=== PATIENT | female | born 1995 | race Caucasian/White ===

== ENCOUNTER 2020-11-04 09:12 | Emergency (ER) | payer MEDICAID ==
[~2020-11-04] VITALS: Ht 165.1 cm; Wt 54.5 kg
[2020-11-04 09:44] VITALS: BP 134/93
== END 2020-11-04 10:39 | disposition home or self-care (01) ==
LOC: ER 09:13
DX: B34.9 Viral infection, unspecified (principal); Z20.822 Contact with and (suspected) exposure to COVID-19; R50.9 Fever, unspecified; R09.89 Other specified symptoms and signs involving the circulatory and respiratory systems; R05 Cough
CPT/HCPCS: 99281

== ENCOUNTER 2021-04-24 20:54 | Emergency (ER) | payer SELFPAY ==
[~2021-04-24] VITALS: Ht 165.1 cm; Wt 67.3 kg
[2021-04-24 21:01] VITALS: BP 159/87
[2021-04-24 21:33] LABS: CLARITY,URINE SLIGHTLY CLOUDY (Clear); GLUCOSE, URINE NEGATIVE (Neg); KETONES,URINE NEGATIVE (Neg); LEUKOCYTE ESTERASE ,URINE NEGATIVE (Neg); NITRITES, URINE NEGATIVE (Neg); OCCULT BLOOD,URINE LARGE (Neg); PROTEIN,URINE NEGATIVE (Neg); UA COLLECTION TYPE CLN CATCH MIDSTREAM; URINE HCG NEGATIVE (NEG); UROBILINOGEN,URINE 0.2 E.U/dL (0.2-1.0)
[2021-04-24 21:34] LABS: COLOR,URINE YELLOW (Yellow)
[2021-04-24 21:47] LABS: BACTERIA,URINE FEW /HPF (Neg); MUCUS STRANDS MANY /LPF (Neg); RBC,URINE 50-100 /HPF (0-2); SQUAMOUS EPITHELIAL CELL,UR MANY /LPF (FEW)
== END 2021-04-24 23:31 | disposition left against medical advice (07) ==
LOC: ER 20:55
DX: R30.9 Painful micturition, unspecified (principal); R39.15 Urgency of urination; Z53.21 Procedure and treatment not carried out due to patient leaving prior to being seen by health care provider
CPT/HCPCS: 81001; 81025

== ENCOUNTER 2022-07-31 07:18 | Emergency (ER) | payer MEDICAID ==
[~2022-07-31] VITALS: Ht 165.1 cm; Wt 65.0 kg
[2022-07-31 08:06] VITALS: BP 92/62
[2022-07-31 08:43] LABS: URINE HCG NEGATIVE (NEG)
[2022-07-31 08:56] LABS: CLARITY,URINE CLOUDY (Clear); COLOR,URINE YELLOW (Yellow); GLUCOSE, URINE NEGATIVE (Neg); KETONES,URINE NEGATIVE (Neg); LEUKOCYTE ESTERASE ,URINE LARGE (Neg); NITRITES, URINE POSITIVE (Neg); OCCULT BLOOD,URINE SMALL (Neg); PROTEIN,URINE 100 mg/dl (Neg)
[2022-07-31 08:58] LABS: UA COLLECTION TYPE CLN CATCH MIDSTREAM
[2022-07-31 09:06] LABS: SQUAMOUS EPITHELIAL CELL,UR MODERATE /LPF (FEW)
[2022-07-31 09:07] LABS: WBC,URINE TNTC /HPF (0-4)
[2022-07-31 09:11] LABS: BACTERIA,URINE 3+ /HPF (Neg)
[2022-07-31] MEDS ORDERED: sulfamethoxazole/trimethoprim DS (800/160mg) tablet PO ONE (10:10)
[2022-07-31] MEDS ORDERED: SULF1TAB49 PO (10:10)
== END 2022-07-31 10:39 | disposition home or self-care (01) ==
LOC: ER 07:18
DX: N39.0 Urinary tract infection, site not specified (principal); R31.9 Hematuria, unspecified
CPT/HCPCS: 81001; 81025; 87077; 87088; 87186; 99283

== ENCOUNTER 2022-08-02 17:10 | Emergency (ER) | payer MEDICAID ==
[~2022-08-02 17:10] MED LIST: SULF1TAB49 PO
[2022-08-02] MEDS ORDERED: CYCL-1 PO (23:00)
== END 2022-08-02 19:18 | disposition left against medical advice (07) ==
LOC: ER 17:11
DX: R50.9 Fever, unspecified (principal); Z53.21 Procedure and treatment not carried out due to patient leaving prior to being seen by health care provider

== ENCOUNTER 2022-08-02 19:28 | Emergency (ER) | payer MEDICAID ==
[~2022-08-02] VITALS: Ht 165.1 cm; Wt 63.0 kg
[2022-08-02 19:34] VITALS: BP 97/63
[2022-08-02] MEDS ORDERED: CefTRIAXone 1000mg IM Kit (w/lidocaine diluent) IM ONE (22:00)
[2022-08-02] MEDS ORDERED: CYCL-1 PO (23:00)
== END 2022-08-02 23:15 | disposition home or self-care (01) ==
LOC: ER 19:29
DX: N39.0 Urinary tract infection, site not specified (principal); M62.838 Other muscle spasm
CPT/HCPCS: 72110; 73630; 96372; 99284; J0696

== ENCOUNTER 2022-11-01 10:50 | Emergency (ER) | payer MEDICAID ==
[~2022-11-01] VITALS: Ht 165.1 cm; Wt 65.0 kg
[~2022-11-01 10:50] MED LIST changes: +CYCL-1 PO; -SULF1TAB49 PO
[2022-11-01 10:57] VITALS: BP 127/89; PULSE 98; RESP 18; TEMP 97.8; O2SAT 100
== END 2022-11-01 13:52 | disposition left against medical advice (07) ==
LOC: ER 10:50
DX: J02.9 Acute pharyngitis, unspecified (principal); Z53.21 Procedure and treatment not carried out due to patient leaving prior to being seen by health care provider
CPT/HCPCS: 99281

== ENCOUNTER 2022-11-20 01:49 | Emergency (ER) | payer MEDICAID ==
[~2022-11-20] VITALS: Ht 165.1 cm; Wt 59.1 kg
[2022-11-20 01:55] VITALS: TEMP 98.9
[2022-11-20 04:01] LABS: ALANINE AMINOTRANSFERASE 18 U/L (12-78); ASPARTATE AMINO TRANSFERASE 14 U/L (10-37); BLOOD UREA NITROGEN 3 MG/DL (7-18); BUN/CREATININE RATIO 4.3 (10.0-20.0); CHLORIDE 100 MMOL/L (99-107); CREATININE 0.69 MG/DL (0.40-0.90); POTASSIUM 3.7 MMOL/L (3.5-5.1); SODIUM 137 MMOL/L (135-145); TOTAL PROTEIN 7.2 G/DL (6.4-8.2); eCRCL 108 ML/MIN; eGFR > 90 ML/MIN
[2022-11-20 04:05] LABS: BASOPHILS % (AUTO) 0.3 % (0-1); EOSINOPHILS % (AUTO) 0.1 % (0-6); HEMATOCRIT 28.7 % (35.0-45.0); HEMOGLOBIN 9.3 g/dl (12.0-16.0); LYMPHOCYTES # (AUTO) 1.7 X10'3 (1.1-4.8); LYMPHOCYTES % (AUTO) 25.9 % (21-51); MEAN CORPUSCULAR HEMOGLOBIN 24.6 PG (27.0-31.0); MEAN CORPUSCULAR HGB CONC 32.3 g/dL (33.0-36.5); MEAN CORPUSCULAR VOLUME 76.3 FL (78-98); MEAN PLATELET VOLUME 8.6 FL (7.4-10.4); MONOCYTES # (AUTO) 0.4 X10'3 (0-0.9); MONOCYTES % (AUTO) 6.4 % (2-12); NEUTROPHILS # (AUTO) 4.3 X10'3 (1.8-7.7); NEUTROPHILS % (AUTO) 67.3 % (42-75); PLATELET COUNT 311 X10'3 (140-440); RED BLOOD COUNT 3.76 X10'6 (4.20-5.60); RED CELL DISTRIBUTION WIDTH 17.5 % (11.5-14.5); WHITE BLOOD COUNT 6.4 X10'3 (4.5-11.0)
[2022-11-20 04:15] LABS: ALBUMIN 2.8 G/DL (3.4-5.0); ALBUMIN/GLOBULIN RATIO 0.6 (1.1-1.5); ALKALINE PHOSPHATASE 95 IU/L (46-116); ANION GAP 7 (8-16); BILIRUBIN,TOTAL 0.2 MG/DL (0.1-1.0); CALCIUM 8.8 MG/DL (8.5-10.1); GLUCOSE 95 MG/DL (70-104); TOTAL CARBON DIOXIDE 30.5 MMOL/L (24-32)
[2022-11-20] MEDS ORDERED: CefTRIAXone/D5W-Rocephin 1gm 50 ML IV ONE (05:05)
[2022-11-20] MEDS ORDERED: SULF1TAB49 PO (05:46)
[2022-11-20] MEDS ORDERED: CEPH-585 PO (05:46)
[2022-11-20] MEDS ORDERED: clindamycin-Cleocin 900mg/D5W 50 ML IV ONE (06:50)
--- NOTE | 2022-11-20 07:12 | NUR ---
Eden wilson LVN
[2022-11-20] MEDS ORDERED: piperacillin/tazo 4.5gm/100ml 100 ML IV ONE (08:00)
[2022-11-20 10:39] VITALS: BP 103/68; PULSE 81; RESP 18; O2SAT 99
== END 2022-11-20 10:40 | disposition home or self-care (01) ==
LOC: ER 01:49
DX: L03.115 Cellulitis of right lower limb (principal); Z79.2 Long term (current) use of antibiotics; Z79.899 Other long term (current) drug therapy
CPT/HCPCS: 36415; 80053; 83605; 83735; 84145; 85025; 87040; 93971; 96365; 96366; 96368; 99285; J0696; J2543; J3490

== ENCOUNTER 2023-03-20 00:20 | Emergency (ER) | payer MEDICAID ==
[~2023-03-20] VITALS: Ht 165.1 cm; Wt 59.1 kg
[~2023-03-20 00:20] MED LIST changes: +CEPH-585 PO
[2023-03-20 00:23] VITALS: BP 121/83; PULSE 82; RESP 16; TEMP 97.4; O2SAT 98
[2023-03-20] MEDS ORDERED: acetaminophen 325mg tablet PO ONE (00:35)
[2023-03-20] MEDS ORDERED: amox tr/potassium clavulanate 500mg/125mg TAB PO SCH (00:35)
[2023-03-20] MEDS ORDERED: ondansetron 4mg rapidly disintigrating tab PO ONE (00:35)
[2023-03-20] MEDS ORDERED: ibuprofen tablet 400 MG TABLET PO ONE (00:35)
[2023-03-20] MEDS ORDERED: AMOX-419 PO (00:38)
== END 2023-03-20 00:51 | disposition home or self-care (01) ==
LOC: ER 00:21
DX: K04.7 Periapical abscess without sinus (principal); Z59.00 Homelessness unspecified
CPT/HCPCS: 99284

== ENCOUNTER 2024-02-03 17:52 | Emergency (ER) | payer MEDICAID ==
[~2024-02-03] VITALS: Ht 165.1 cm; Wt 65.7 kg
[~2024-02-03 17:52] MED LIST changes: -CEPH-585 PO
[2024-02-03 18:26] LABS: BILIRUBIN,URINE NEGATIVE (Neg); CLARITY,URINE CLOUDY (Clear); COLOR,URINE YELLOW (Yellow); GLUCOSE, URINE NEGATIVE (Neg); KETONES,URINE TRACE mg/dl (Neg); LEUKOCYTE ESTERASE ,URINE SMALL (Neg); NITRITES, URINE NEGATIVE (Neg); OCCULT BLOOD,URINE NEGATIVE (Neg); PROTEIN,URINE TRACE mg/dl (Neg); UROBILINOGEN,URINE 0.2 E.U/dL (0.2-1.0)
[2024-02-03 18:27] LABS: URINE HCG NEGATIVE (NEG)
[2024-02-03 18:30] LABS: UA COLLECTION TYPE CLN CATCH MIDSTREAM
[2024-02-03 18:31] LABS: SQUAMOUS EPITHELIAL CELL,UR MANY /LPF (FEW)
[2024-02-03 18:34] LABS: BACTERIA,URINE 2+ /HPF (Neg); MUCUS STRANDS MODERATE /LPF (Neg); RBC,URINE NONE SEEN /HPF (0-2)
[2024-02-03 18:44] LABS: BASOPHILS % (AUTO) 0.1 % (0-1); EOSINOPHILS % (AUTO) 0.2 % (0-6); HEMATOCRIT 40.6 % (35.0-45.0); HEMOGLOBIN 13.6 g/dl (12.0-16.0); LYMPHOCYTES # (AUTO) 0.5 X10'3 (1.1-4.8); LYMPHOCYTES % (AUTO) 5.9 % (21-51); MEAN CORPUSCULAR HEMOGLOBIN 28.5 PG (27.0-31.0); MEAN CORPUSCULAR HGB CONC 33.4 g/dL (33.0-36.5); MEAN CORPUSCULAR VOLUME 85.4 FL (78-98); MEAN PLATELET VOLUME 8.6 FL (7.4-10.4); MONOCYTES # (AUTO) 0.4 X10'3 (0-0.9); MONOCYTES % (AUTO) 4.7 % (2-12); NEUTROPHILS # (AUTO) 7.3 X10'3 (1.8-7.7); NEUTROPHILS % (AUTO) 89.1 % (42-75); PLATELET COUNT 243 X10'3 (140-440); RED BLOOD COUNT 4.76 X10'6 (4.20-5.60); RED CELL DISTRIBUTION WIDTH 14.7 % (11.5-14.5); WHITE BLOOD COUNT 8.2 X10'3 (4.5-11.0)
[2024-02-03 18:58] LABS: ALANINE AMINOTRANSFERASE 23 U/L (12-78); ALBUMIN 3.8 G/DL (3.4-5.0); ALBUMIN/GLOBULIN RATIO 1.1 (1.1-1.5); ALKALINE PHOSPHATASE 79 IU/L (46-116); ANION GAP 5 (8-16); ASPARTATE AMINO TRANSFERASE 21 U/L (10-37); BILIRUBIN,TOTAL 0.4 MG/DL (0.1-1.0); BLOOD UREA NITROGEN 15 MG/DL (7-18); BUN/CREATININE RATIO 18.8 (10.0-20.0); CALCIUM 8.2 MG/DL (8.5-10.1); CHLORIDE 102 MMOL/L (99-107); GLUCOSE 97 MG/DL (70-104); LIPASE 24 U/L (16-77); POTASSIUM 3.9 MMOL/L (3.5-5.1); SODIUM 137 MMOL/L (135-145); TOTAL CARBON DIOXIDE 29.6 MMOL/L (24-32); TOTAL PROTEIN 7.4 G/DL (6.4-8.2); eCRCL 93 ML/MIN; eGFR 84 ML/MIN
[2024-02-03] MEDS: ondansetron/PF 4mg/2ml inj IV ONE (19:42)
[2024-02-03] MEDS: normal saline 1000ML IV soln IVB ONE (19:42)
[2024-02-03] MEDS ORDERED: POLY17PO10 PO (20:25)
[2024-02-03] MEDS ORDERED: SULF1TAB45 PO (20:25)
[2024-02-03] MEDS: magnesium citrate 296ml oral solution PO ONE (20:36)
[2024-02-03 20:40] VITALS: BP 134/86; PULSE 67; RESP 16; TEMP 98.1; O2SAT 95
== END 2024-02-03 20:42 | disposition home or self-care (01) ==
LOC: ER 17:53
DX: K59.01 Slow transit constipation (principal); R11.10 Vomiting, unspecified; Z79.899 Other long term (current) drug therapy
CPT/HCPCS: 36415; 74176; 80053; 81001; 81025; 83690; 85025; 96361; 96374; 99285; J2405; J7030

== ENCOUNTER 2024-12-04 05:40 | Emergency (ER) | payer MEDICAID ==
[~2024-12-04] VITALS: Ht 165.1 cm; Wt 67.4 kg
[2024-12-04 05:51] VITALS: BP 147/90; PULSE 118; TEMP 98; O2SAT 98
[2024-12-04 06:17] VITALS: RESP 16
[2024-12-04] MEDS ORDERED: ceFAZolin 2gm/dext,iso 50mL 50 ML IV ONE (06:40)
--- NOTE | 2024-12-04 06:47 | Physician Documentation ---
History of Present Illness ~ Chief Complaint: Bite-insect Stated Complaint: RIGHT ARM BEE STING Time Seen by MD: 06:28 Primary Medical Doctor: Brennon Powers in Mode of Arrival: [facility] 29-year-old female patient who is ambulatory without significant past medical history came to the emergency room because of yellow jacket bee sting two days ago to her right arm and now the right arm and fingers are swollen and also generally she is not feeling good. The patient has some pain occasionally as well. Patient is not diabetic and not taking any medication regularly. No smoking no drinking and no illicit drug usage. No other symptoms. Tetanus within 5 years?: No Medication Reconciliation Allergies: Coded Allergies: No Known Allergies (Unverified , 12/04/24) Scheduled Cephalexin (Cephalexin), 1 CAP PO Q12H Cyclobenzaprine* (Cyclobenzaprine*), 1 TAB PO HS Scheduled PRN Tramadol HCl (Tramadol HCl), 1 TAB PO Q6H PRN PRN for pain Past Medical History Past Medical History: No Pertinent History Past Surgical History: no surgical history Alcohol Use: None Drug Use: none Lives with: Family Lives In: Homeless Occupation: employed Review of Systems ROS As stated above in the HPI, otherwise all systems are reviewed and negative. Physical Exam Vital Signs: Temperature: 98.0, Source: Oral, Heart Rate: 118, Respiratory Rate: 16, BP: 147/90, Pulse Oximetry: 98, Weight: 67.400 Oxygen Flow Rate: 0 Physical Exam Reviewed vital signs and I noticed that heart rate is fast. The rest of the vital signs are normal. Const: Not in acute cardiopulmonary distress Head: Atraumatic Eyes: Normal Conjunctiva ENT: Normal External Ears, Nose and Mouth. Moist mucous membranes Neck: Full range of motion. No meningismus Resp: Clear to auscultation bilaterally. Normal work of breathing Cardio: Regular rate and rhythm, no murmurs. Skin well perfused, heart rate is 120 beats per minute Abd: Soft, non-tender, non-distended. Normal bowel sounds. No rebound or guarding Skin: No petechiae or rashes. Warm and dry Back: No midline or flank tenderness Ext: No cyanosis, or edema Local examination of the right hand in the volar aspect of the wrist there is some scratch cortes. The forearm and the hand is swollen. Distal circulation sensation intact. Neuro: Awake and alert Psych: Normal Mood and Affect Progress Results/Orders Results/Orders Orders - RADHA VILLAVICENCIO MD Culture Blood (12/04/24 06:34) Saline Lock (12/04/24 ) Completed Orders - RADHA VILLAVICENCIO MD Cbc/Diff (12/04/24 06:34) MG (12/04/24 06:34) Procalcitonin (12/04/24 06:34) BMP (12/04/24 06:34) Lacticsepsis (12/04/24 06:34) Liver Panel (12/04/24 06:34) Cefazolin 2gm/Dext,Iso 50ml (Cefazolin 2 (12/04/24 06:47) * Arm Sling To Be Placed Overn (12/04/24 08:38) Vital Signs 12/04/24 12/04/24 05:51 06:17 Temp 98.0 Pulse 118 Resp 18 16 B/P (MAP) 147/90 Pulse Ox 98 O2 Flow Rate 0 Laboratory Tests Test 12/04/24 06:53 White Blood Count 5.1 Red Blood Count 4.27 Hemoglobin 12.1 Hematocrit 36.2 Mean Corpuscular Volume 84.9 Mean Corpuscular Hemoglobin 28.4 Mean Corpuscular Hemoglobin Concent 33.5 Red Cell Distribution Width 14.6 H Platelet Count 219 Mean Platelet Volume 8.9 Neutrophils (%) (Auto) 65.9 Lymphocytes (%) (Auto) 24.4 Monocytes (%) (Auto) 6.2 Eosinophils (%) (Auto) 3.0 Basophils (%) (Auto) 0.5 Neutrophils # (Auto) 3.3 Lymphocytes # (Auto) 1.2 Monocytes # (Auto) 0.3 Eosinophils # (Auto) 0.1 Basophils # (Auto) 0.0 CBC Comment Sodium Level 142 Potassium Level 3.9 Chloride Level 104 Carbon Dioxide Level 30.3 Anion Gap 8 Blood Urea Nitrogen 14 Creatinine 0.78 Estimated GFR/1.73 m2 86 BUN/Creatinine Ratio 17.9 Glucose Level 91 Lactic Acid Level 0.7 Calcium Level 8.4 L Magnesium Level 1.8 Total Bilirubin 0.2 Direct Bilirubin 0.1 Aspartate Amino Transf (AST/SGOT) 16 Alanine Aminotransferase (ALT/SGPT) 16 Alkaline Phosphatase 71 Total Protein 7.0 Albumin 3.5 Globulin 3.5 Albumin/Globulin Ratio 1.0 L Procalcitonin < 0.05 Chemistry Comments Microbiology Date/Time Source Procedure Growth Status 12/04/24 07:59 Blood Arm Left Blood Culture - Preliminary NEGATIVE (LESS THAN 24 HOURS) Resulted Medical Decision Making Findings ER COURSE/MED. DECISION MAKING REVIEW OF RECORD(S): PREVIOUS MEDICAL RECORDS HERE AND/OR EXTERNAL MEDICAL RECORDS, SUCH THAT PROVIDED DIRECTLY BY THE PATIENT, BY EMS AND/OR OUTSIDE MEDICAL FACILITIES, IF AVAILABLE, WERE REVIEWED. COMORBIDITIES NONE MDM DURING THE PHYSICAL EXAMINATION, THE FINDINGS SUGGESTIVE OF ACUTE LIFE- THREATENING CONDITION SUCH JVD, TRACHEAL DEVIATION, ACIDOTIC BREATHING, NOISY STRIDOROUS BREATH SOUNDS, PULSES PARADOXUS, MUFFLED HEART SOUNDS, UNEQUAL BREATH SOUNDS, ABDOMINAL RIGIDITY AND REBOUND TENDERNESS, FOCAL NEUROLOGICAL DEFICITS, COOL CLAMMY SKIN, SEVERE HYPOTENSION, SEVERE TACHYCARDIA OR BRADYCARDIA ARE ABSENT. PATIENT PRESENTING FOR RIGHT HAND SWELLING. VITAL SIGNS REVIEWED. PATIENT IS HEMODYNAMICALLY STABLE AND DOES NOT MEET SIRS CRITERIA. PATIENT APPEARS NONTOXIC ON EXAM. RIGHT UPPER EXTREMITY FROM THE FOREARM TO THE FINGER IS SWOLLEN BUT DISTAL CIRCULATION SENSATION INTACT. FINGER FUNCTIONS ARE ALSO INTACT. CBC SHOWED WBC 5.1 H&H 12.1 AND 36.2 PLATELETS 219. LACTIC ACID IS 0.9. CMP: NO EVIDENCE OF CLINICALLY SIGNIFICANT ACIDOSIS, ALKALOSIS, RENAL DYSFUNCTION, DIABETIC KETOACIDOSIS, ACUTE LIVER DISEASE OR ELECTROLYTE IMBALANCE PROCALCITONIN IS LESS THAN 0.05. A DIFFERENTIAL DIAGNOSIS ASSOCIATED WITH THE PATIENTS PRESENTATION INCLUDES: TREATMENT/DISPOSITION: THE PATIENT'S PRESENTATION IS MOST CONSISTENT WITH CELLULITIS OF THE RIGHT FOREARM AND WRIST. PRIOR TO DISCHARGE I INDEPENDENTLY REVIEWED THE PATIENTS PAST MEDICAL HISTORY, CLINICAL RISK FACTORS, COMORBIDITIES, AND SOCIAL DETERMINANTS OF HEALTH AND DIAGNOSTIC STUDIES. THE PATIENT APPEARS TO BE A SAFE DISCHARGE HOME WITH CLOSE OUTPATIENT PCP FOLLOW-UP I HAD EXTENSIVE DISCUSSION WITH PATIENT REGARDING MANAGEMENT, DISPOSITION AND FOLLOW UP. POTENTIAL SYMPTOM ETIOLOGY WAS DISCUSSED, AND SHARED DECISION MAKING OCCURRED. THEY WILL RETURN IMMEDIATELY IF SYMPTOMS WORSEN, DO NOT IMPROVE, OR THEY HAVE ANY FURTHER CONCERNS. PRIOR TO DISCHARGE ALL QUESTIONS WERE ADDRESSED. THE PATIENT IS AWARE THAT THE PURPOSE OF THIS VISIT WAS TO SCREEN FOR AN ACUTE MEDICAL EMERGENCY REQUIRING EMERGENT STABILIZATION. CHRONIC AND OCCULT CONDITIONS, INCLUDING MALIGNANCIES, HAVE NOT BEEN RULED OUT. IF PATIENT IS UNABLE TO ARRANGE FOLLOW-UP STATED IN THE DISCHARGE INSTRUCTIONS AND FURTHER DISCUSSED WITH THE PATIENT DIRECTLY, OR THEIR SYMPTOMS WORSEN/BECOME MORE CONCERNING, THEY ARE TO RETURN TO THE ER FOR REASSESSMENT IMMEDIATELY. PRIOR TO LEAVING THE DEPARTMENT, THE PATIENT HAS A PLAN FOR DISCHARGE, HAS DECISION MAKING CAPACITY, AND ACKNOWLEDGES AN UN DERSTANDING OF THE VERBAL AND WRITTEN DISCHARGE INSTRUCTIONS. SOCIAL DETERMINANTS: PATIENT DEMONSTRATES NO OBVIOUS CHALLENGES TO FOLLOWING UP AN OUTPATIENT ALTHOUGH DID CONSIDER WHETHER PATIENT HAD ANY BARRIERS TO ACCESS CARE INCLUDING HOMELESSNESS, FOOD INSECURITY, MENTAL HEALTH, SUBSTANCE ABUSE, DISABILITIES, LIMITED ACCESS TO MEDICAL CARE, DIFFICULTY FINDING TRANSPORT, INSURANCE ISSUES, REFUSAL OF CARE OR TESTING DUE TO COST CONCERNS. MEDICAL SCREENING: I HAVE DISCUSSED WITH THE PATIENT THE NON-DEFINITIVE NATURE OF THE EMERGENCY SCREENING EXAM, DIAGNOSIS AND THE POSSIBILITY OF A VARIETY OF CONDITIONS WHICH MAY PRESENT IN ATYPICALLY BENIGN FASHION AND STRESSED THE IMPORTANCE OF CLOSE FOLLOW-UP FOR DEFINITIVE DIAGNOSIS AND TREATMENT. WE DISCUSSED SIGNS AND SYMPTOMS THAT SHOULD BE WATCHED FOR WHICH MIGHT INDICATE A MORE SERIOUS OR NEW CONDITION THAT WOULD BENEFIT FROM EMERGENCY REEVALUATION AND THE PATIENT HAS VERBALIZED UNDERSTANDING TO THIS AND MY OTHER DETAILED DISCHARGE INSTRUCTIONS AND PROMISES COMPLIANCE. I HAVE REFERRED HIM BACK TO HIS PRIMARY PHYSICIAN OF COURSE FOR A MORE DETAILED EVALUATION AND MORE DEFINITIVE DIAGNOSE S. DISCLAIMER: INADVERTENT SPELLING AND GRAMMATICAL ERRORS ARE LIKELY DUE TO EMR/DICTATION SOFTWARE USE AND DO NOT REFLECT ON THE OVERALL QUALITY OF PATIENT CARE. NOTE THAT THE ELECTRONIC TIME RECORDED ON THIS NOTE DOES NOT NECESSARILY REFLECT THE ACTUAL TIME OF THE PATIENT ENCOUNTER. Departure Disposition: 01 HOME / SELF CARE / HOMELESS Impression: Primary Impression: Cellulitis of forearm, right Additional Impression: Cellulitis of hand, right Condition: Stable Discharge Instructions: Cellulitis, Adult, Insect Bite, Adult, [id number] Additional Instructions: Thank you for coming to our Emergency Department today. Please ask your nurse or provider if you have questions about your care today and do not leave until all your questions have been answered. Please use any medications given as directed and follow-up with your doctor (or the doctor you were referred to) in the next 1-3 days. Your primary care doctor can help to coordinate outpatient specialty care and provide authorization for specialty referral as needed. If you do not have a primary care doctor you may follow up at a [facility]. You may also use motrin and tylenol as needed for fever and/or pain unless instructed otherwise by your provider or nurse. Indications for more urgent follow-up have been discussed, but you may return to the Emergency Department at ANY time for any worrisome or worsening symptoms. County Facilities: [facility] Facilities: [facility]: [place] Address:[address] [place] [address] [facility]: [place] Address:[address] [place] [address] [facility]: Telemedicine Address:[address] [place] [address] [facility] Address:[address] [place] [address] Registration Billing Pharmacy Referrals [facility] [place] Address:[address] [place] [address] Departure Forms: Prescriptions Transmitted Prescriptions Tramadol HCl (Tramadol HCl) 50 Mg Tablet 1 TAB PO Q6H PRN PRN for pain, #20 TAB Take it as instructed Prov: RADHA VILLAVICENCIO MD 12/04/24 Cephalexin (Cephalexin) 750 Mg Capsule 1 CAP PO Q12H for 10 Days, #20 CAP 0 Refills Prov: RADHA VILLAVICENCIO MD 12/04/24 Education Educated: Patient, Family Signature Scribe Signature: no scribe Attestation: This is my dictation RADHA VILLAVICENCIO MD Dec 04, 2024 06:46
[2024-12-04] MEDS: ceFAZolin 2gm/dext,iso 50mL 50 ML IV ONE (07:11)
[2024-12-04 07:23] LABS: MEAN PLATELET VOLUME 8.9 FL (7.4-10.4); RED CELL DISTRIBUTION WIDTH 14.6 % (11.5-14.5)
[2024-12-04 07:46] LABS: CREATININE 0.78 MG/DL (0.40-0.90); TOTAL CARBON DIOXIDE 30.3 MMOL/L (24-32); eCRCL 94 ML/MIN; eGFR 86 ML/MIN
[2024-12-04] MEDS ORDERED: TRAM50TA2 PO ×2 (08:36→09:21)
[2024-12-04] MEDS ORDERED: CEPH750C7 PO (08:36)
== END 2024-12-04 09:00 | disposition home or self-care (01) ==
LOC: ER 05:40
DX: L03.113 Cellulitis of right upper limb (principal); Z59.02 Unsheltered homelessness; Z79.899 Other long term (current) drug therapy
CPT/HCPCS: 36415; 80048; 80076; 83605; 83735; 84145; 85025; 87040; 96365; 99284; J0690